=== PATIENT | male | born 1960 | race Caucasian/White ===

== ENCOUNTER 2020-05-04 16:35 | Emergency (ER) | payer OTHER, SELFPAY ==
[2020-05-04 16:47] VITALS: BP 145/84; PULSE 69; RESP 18; TEMP 36.3; O2SAT 99
--- NOTE | 2020-05-04 16:47 | ED.NECK ---
HPI - Neck Pain/Injury General Chief Complaint: Neck Pain/Injury Stated Complaint: neck pain Time Seen by Provider: 05/04/20 16:47 Source: patient Mode of arrival: ambulatory Limitations: no limitations History of Present Illness HPI Narrative: Eusebio Dan is a 59 yo male with a PMH of who comes to express care after falling off 8-10 ft ladder while putting in window. States he has neck pain, hit head. + LOC. Had numbness in bilateral arms. Has had a few beers to drink before coming here. Related Data Home Medications Medication Instructions Recorded Confirmed No Home Medications 05/04/20 05/04/20 Allergies Allergy/AdvReac Type Severity Reaction Status Date / Time No Known Allergies Allergy Unverified 02/04/18 10:18 Review of Systems Review of Systems: Narrative: CONSTITUTIONAL: Denies fever, chills, sweats. EYES: Denies visual changes, redness, discharge. ENT: Denies rhinorrhea, congestion, sore throat, otalgia. CARDIOVASCULAR: Denies chest pain, palpitations, edema. RESPIRATORY: Denies dyspnea, wheezing, cough GASTROINTESTINAL: Denies abdominal pain, nausea, vomiting, diarrhea. GENITOURINARY: Denies dysuria, hematuria, abnormal discharge SKIN: Denies rash or itching. NEUROLOGIC: Denies numbness, or focal weakness. PSYCHIATRIC: Denies anxiety or depression. Cervical pain with +LOC, after fall - laceration to scalp PMFSH Family History Family History Other Hypertension Social History Social History (Updated 05/04/20 @ 17:07 by Rosita Gallagher CNP) Smoking status: Current every day smoker Alcohol intake: current Drinks per week: 125 Alcohol use details: 18 beers a day Comments At time of signature, I agree with nursing past medical, surgical, social and family history. There is no relevant family history pertinent to the presenting complaint. Exam Narrative: Exam Narrative: GENERAL: This is a well-nourished, well-developed patient, in moderate distress. HEAD: normocephalic, fall- A and O x 3. EYES: PERRL. Sclera injected; vision is grossly intact. EARS: External ears normal,Canals clear - . Hearing grossly intact. NOSE: External nose normal without nasal discharge, nares without redness, no rhinorrhea. THROAT: Mucous membranes moist, NECK: Neck supple, non-tender CARDIOVASCULAR: Regular rate and rhythm without murmurs, gallops, or rubs. RESPIRATORY: Clear to auscultation. Breath sounds equal bilaterally. No wheezes, rales, or rhonchi. GASTROINTESTINAL: Abdomen soft, SKIN: warm, intact with no suspicious lesions or rash, good texture and turgor.Dirty - NEURO: awake, alert, and oriented to person, place and time. There were no obvious focal neurologic abnormalities, although has some L tingling. EXTREMITIES: Normal range of motion. BACK: Nontender without deformity Course Course Emergency Course: X-ray cervical:decided to send to ER for CT when report LOC and neck pain Vital Signs Vital signs: Vital Signs Temperature 97.4 F L 05/04/20 16:47 Pulse Rate 69 05/04/20 16:47 Respiratory Rate 18 05/04/20 16:47 Blood Pressure 145/84 H 05/04/20 16:47 Pulse Oximetry 99 05/04/20 16:47 Temperature 97.4 F L 05/04/20 16:47 Pulse Rate 69 05/04/20 16:47 Respiratory Rate 18 05/04/20 16:47 Blood Pressure 145/84 H 05/04/20 16:47 Pulse Oximetry 99 05/04/20 16:47 Procedures Laceration Laceration 1: Date: 05/04/20 Time: 17:09 Size (cm): 2 Description: flap Depth: simple, single layer Pre-repair: irrigated ====== Skin Level ====== Skin layer closed with: bharati Number of sutures: 3 ====== Subcutaneous Layer ====== ====== Muscle Layer ====== ====== Tendon Layer ====== Dressing: Tolerated well- pressure dressing MDM - Neck Pain/Injury Differential Diagnosis Differential diagnosis: Likely whiplash injury to neck,
== END 2020-05-04 17:15 | disposition short-term general hospital (02) ==
PROVIDERS: Emergency Provider Nurse Practitioner
DX: S06.9X9A Unspecified intracranial injury with loss of consciousness of unspecified duration, initial encounter (principal); S01.91XA Laceration without foreign body of unspecified part of head, initial encounter; S19.9XXA Unspecified injury of neck, initial encounter; W11.XXXA Fall on and from ladder, initial encounter; F17.200 Nicotine dependence, unspecified, uncomplicated
CPT/HCPCS: 12001; 99212; G0463; L0140

== ENCOUNTER 2020-05-04 17:38 | Emergency (ER) | payer OTHER, SELFPAY ==
--- NOTE | ~2020-05-04 | CT_ITS ---
EXAMINATION: CT lumbar spine wo con DATE: 05/04/2020 18:26 INDICATION: 8-10 foot fall from ladder with head injury and loss of consciousness. TECHNIQUE: Computed tomography (CT) of the lumbar spine was performed without intravenous contrast. A utomated exposure control and iterative reconstruction technique were employed. The dose-length produ ct was 892.93 mGy-cm. COMPARISON: None FINDINGS: Mild lumbar levocurvature. 4 mm anterolisthesis L5 on S1. Chronic appearing mild anterior wedging at T11 and T12. No acute fracture. Schmorl's node along the superior endplate of T11. Moderate disc heig ht loss at T11-T12 and T12-L1. Schmorl's nodes and Modic type III sclerotic degenerative endplate sofya nges along the anterior inferior endplate of T12. Severe disc height loss with additional sclerotic d egenerative endplate changes at L5-S1. Scattered diverticula along the sigmoid colon without adjacent inflammatory change to suggest diverticulitis. Postoperative changes suture line along the partially visualized ascending colon. The following disc levels are specifically discussed: T11-T12: Disc is mildly bulging. There is mild bilateral facet joint osteoarthritis. There is no neur al foraminal stenosis. There is mild central canal stenosis. T12-L1: Disc is mildly bulging. There is mild bilateral facet joint osteoarthritis. There is no neura l foraminal stenosis. There is minimal central canal stenosis. L1-L2: Disc is mildly bulging. There is mild left and moderate right facet joint osteoarthritis. Ther e is no neural foraminal stenosis. There is mild central canal stenosis. L2-L3: Disc is bulging. There is mild bilateral facet joint osteoarthritis. There is no neural forami nal stenosis. There is mild central canal stenosis. L3-L4: Disc is bulging. There is mild bilateral facet joint osteoarthritis. There is no neural forami nal stenosis. There is mild central canal stenosis. L4-L5: Disc is bulging. There is mild to moderate bilateral facet joint osteoarthritis. There is mild left neural foraminal stenosis. There is mild central canal stenosis. L5-S1: Disc is bulging. There is moderate left and mild to moderate right facet joint osteoarthritis. There is moderate bilateral neural foraminal stenosis. There is minimal central canal stenosis. IMPRESSION: 1. Spondylosis, severe at L5-S1, moderate at T12-L1 and mild in the intervening lumbar spine. No acut e osseous abnormality. Reviewed, dictated and finalized at location A. IMPRESSION: 1. Spondylosis, severe at L5-S1, moderate at T12-L1 and mild in the intervening lumbar spine. No acute osseous abnormality.
--- NOTE | ~2020-05-04 | XR_ITS ---
EXAMINATION: XR pelvis 1-2V DATE: 05/04/2020 18:36 INDICATION: 8-10 foot fall from ladder with head injury and loss of consciousness TECHNIQUE: An anteroposterior view of the pelvis was obtained. COMPARISON: None. FINDINGS: Bone alignment is normal. No fracture. Moderate facet osteoarthritis the lumbosacral junction. Bilate ral hip and sacroiliac joint spaces are normal. Suture line at the proximal colon in the right lower quadrant. Soft tissues are otherwise unremarkable. IMPRESSION: 1. No acute osseous abnormality. Reviewed, dictated and finalized at location A.
--- NOTE | ~2020-05-04 | XR_ITS ---
EXAMINATION: XR chest 1V portable DATE: 05/04/2020 18:51 INDICATION: Left arm numbness post fall from ladder TECHNIQUE: frontal view of the chest was obtained. COMPARISON: Chest radiograph dated 10/20/2012 FINDINGS: The lungs remain clear with no focal airspace opacities, pulmonary edema, pleural effusion or pneumot horax. The cardiomediastinal silhouette is normal. Suggestion of an old healed anterior right sixth a nd seventh rib fractures which appears unchanged since the prior radiograph. No acute fractures ident ified. IMPRESSION: 1. No acute osseous abnormality or acute cardiopulmonary disease. Reviewed, dictated and finalized at location A.
--- NOTE | ~2020-05-04 | CT_ITS ---
EXAMINATION: CT brain wo con DATE: 05/04/2020 18:26 INDICATION: 8-10 foot fall from ladder with head injury and loss of consciousness TECHNIQUE: Computed tomography (CT) of the head was performed without intravenous contrast. Sagittal and coronal reconstructions were performed. The mA was adjusted according to patient size. Iterative reconstruction technique was employed. The dose-length product was 605.33 mGy-cm. COMPARISON: None FINDINGS: Midline posterior parietal small scalp hematoma and laceration with skin bharati. No fracture. No acu te intracranial hemorrhage, acute infarction or abnormal extra axial fluid collection. Ventricles are normal and symmetric. No mass/mass effect. Mild mucosal thickening in the bilateral maxillary sinuse s. The orbits and mastoid air cells are normal. IMPRESSION: 1. No fracture or acute intracranial process. Reviewed, dictated and finalized at location A.
--- NOTE | ~2020-05-04 | CT_ITS ---
EXAMINATION: CT cervical spine wo con DATE: 05/04/2020 18:26 INDICATION: Fall with head injury and left arm numbness and heaviness. TECHNIQUE: Computed tomography (CT) of the cervical spine was performed without intravenous contrast. Automated exposure control and iterative reconstruction technique were employed. The dose-length pro duct was 200.59 mGy-cm. COMPARISON: None FINDINGS: Mild cervical dextrocurvature. Sagittal alignment is normal. Vertebral body heights are normal. No fr acture. Moderate disc height loss at C5-C6 and C6-C7 and mild disc height loss at the remaining level s between C2-C3 and T2-T3. Disc bulges and posterior disc osteophyte complex is through C6-C7 resulti ng in multilevel mild central canal stenosis. There is also multilevel bilateral uncovertebral osteoa rthritis resulting in moderate neural foraminal stenosis on the left at C3-C4 through C5-C6 with mild neural foraminal stenosis at the remaining cervical neural foramina. Moderate facet osteoarthritis o n the left at C3-C4 and severe facet osteoarthritis on the left at T2-T3. Mild facet osteoarthritis a t the remaining cervical and upper thoracic levels. Cervical soft tissues are unremarkable. Mild emph ysema at the apices of lungs. IMPRESSION: 1. Mild cervical dextrocurvature with moderate spondylosis. No fracture or other acute osseous abnorm ality. 2. Mild emphysema. Reviewed, dictated and finalized at location A. IMPRESSION: 1. Mild cervical dextrocurvature with moderate spondylosis. No fracture or othe r acute osseous abnormality. 2. Mild emphysema.
[2020-05-04 17:41] VITALS: BP 159/99; PULSE 75; RESP 18; TEMP 36.7; O2SAT 97
[2020-05-04] MEDS: SODIUM CHLORIDE 0.9% IV 1,000 ML 999 ML IV CONT (17:54)
--- NOTE | 2020-05-04 17:56 | ED.FALL ---
HPI - Fall General Chief Complaint: Fall <Jesse Forrester PA-C - Last Filed: 05/04/20 19:20> Stated Complaint: fall 8-10 ft <Jesse Forrester PA-C - Last Filed: 05/04/20 19:20> Time Seen by Provider: 05/04/20 17:43 <Jesse Forrester PA-C - Last Filed: 05/04/20 19:20> Source: patient <FERNANDO Mcgarry Last Filed: 05/04/20 19:20> Mode of arrival: ambulatory <Jesse Forrester PA-C - Last Filed: 05/04/20 19:20> Limitations: no limitations <Jesse Forrester PA-C - Last Filed: 05/04/20 19:20> History of Present Illness HPI Narrative: Patient is a 59-year-old male who presents to emergency department for evaluation of head injury that occurred just prior to arrival patient was 8 to 10 feet up on a ladder when he fell landing on his buttock has since had aching pain to the posterior head with the worst pain of the neck at the base of the neck at C6-7. Patient notes that he landed on his buttocks denies any pelvic or low back pain. Patient was sent by urgent care for evaluation. Patient is unsure as to loss of consciousness. On arrival patient resting comfortably in the room. Patient's posterior scalp was sutured at urgent care <Jesse Forrester PA-C - Last Filed: 05/04/20 19:20> Related Data Home Medications: Home Medications Medication Instructions Recorded Confirmed No Home Medications 05/04/20 05/04/20 <Jesse Forrester PA-C - Last Filed: 05/04/20 19:20> Allergies/Adverse Reactions: Allergies Allergy/AdvReac Type Severity Reaction Status Date / Time No Known Allergies Allergy Unverified 05/04/20 17:46 <Jesse Forrester PA-C - Last Filed: 05/04/20 19:20> Review of Systems Review of Systems: All systems reviewed & are unremarkable except as noted in HPI and below <Jesse Forrester PA-C - Last Filed: 05/04/20 19:20> PMFSH Social History Social History: Social History Smoking status: Current every day smoker Alcohol intake: current Drinks per week: 125 Gender identity (if verbalized by the patient): Male <Jesse Forrester PA-C - Last Filed: 05/04/20 19:20> Exam Narrative: Exam Narrative: GENERAL: Well-appearing, well-nourished, and in no acute distress. HEAD: Normocephalic, posterior scalp laceration sutured with bharati EYES: PERRLA and EOMI. ENT: Nares clear, no rhinorrhea or epistaxis. Mucous membranes moist. Oropharynx without tonsillar hypertrophy exudate or other lesions. NECK: Supple. No adenopathy or masses. CHEST: Clear to auscultation. No respiratory distress. No wheezes rales or rhonchi HEART: Regular rate and rhythm. No murmur heard. EXTREMITIES: Normal range of motion. No edema. Midline cervical tenderness no thoracic or lumbar tenderness. SKIN: Warm, dry, no rash. NEURO: No focal deficits. Alert and oriented x3. Cranial nerves II through XII grossly intact. Normal speech and gait PSYCH: Normal mood and affect. <Jesse Forrester PA-C - Last Filed: 05/04/20 19:20> Course Course Emergency Course: Patient in the room aware of case findings treatment plan and diagnosis <Jesse Forrester PA-C - Last Filed: 05/04/20 19:20> Vital Signs Vital signs: Vital Signs Temperature 98.1 F 05/04/20 17:41 Pulse Rate 75 05/04/20 17:41 Respiratory Rate 18 05/04/20 17:41 Blood Pressure 159/99 H 05/04/20 17:41 Pulse Oximetry 97 05/04/20 17:41 Temperature 98.1 F 05/04/20 18:50 Pulse Rate 68 05/04/20 19:25 Respiratory Rate 15 05/04/20 19:25 Blood Pressure 141/70 H 05/04/20 19:25 Pulse Oximetry 99 05/04/20 19:25 <Jesse Forrester PA-C - Last Filed: 05/04/20 19:20> Vital Signs Temperature 98.1 F 05/04/20 17:41 Pulse Rate 75 05/04/20 17:41 Respiratory Rate 18 05/04/20 17:41 Blood Pressure 159/99 H 05/04/20 17:41 Pulse Oximetry 97 05/04/20 17:41 Temperature 98.1 F 05/04/20 18:50
[2020-05-04 17:57] LABS: Basophils Percent Auto 0.3 % (0.2-1.2); Eosinophils Absolute Auto 0.2 K/mm3 (0-0.3); Eosinophils Percent Auto 1.7 % (0-4.4); Hematocrit 48.5 % (42.0-52.0); Hemoglobin 16.6 g/dL (14.0-18.0); Immature Granulocyte Absolute 0.03 K/mm3 (0.00-0.031); Immature Granulocyte Percent A 0.3 % (0-0.5); Lymphocytes Absolute Auto 3.19 K/mm3 (0.9-3.2); Lymphocytes Percent Auto 36.1 % (18.3-44.2); Mean Corpuscular HGB Conc 34.2 g/dl (32-36); Mean Corpuscular Hemoglobin 33.5 pg (26-34); Mean Corpuscular Volume 97.8 fl (80-100); Mean Platelet Volume 10.4 fl (7.4-10.4); Neutrophils Absolute Auto 4.5 K/mm3 (1.3-6.7); Neutrophils Percent Auto 50.6 % (45.5-73.1); Platelet Count Result 183 k/mm3 (150-375); Red Blood Count 4.96 M/mm3 (4.6-6.20); Red Cell Distribution Width 13.4 % (11.5-14.5); White Blood Count 8.8 K/mm3 (4.5-10.0)
[2020-05-04 18:07] LABS: Prothrombin Time 13.3 Seconds (11.1-14.7)
[2020-05-04 18:08] LABS: Partial Thromboplastin Time 30.4 SECONDS (22.3-36.8)
[2020-05-04 18:12] LABS: Alanine Aminotransferase 356 U/L (4-50); Albumin Level 4.8 g/dL (3.5-5.1); Alkaline Phosphatase 89 U/L (38-126); Aspartate Amino Transferase 442 U/L (17-59); Bilirubin,Total 0.6 mg/dL (0.2-1.3); Blood Urea Nitrogen 8 mg/dL (9-20); Calcium 9.8 mg/dL (8.4-10.2); Carbon Dioxide 26 mmol/L (22-30); Chloride 107 mmol/L (98-107); Estimated CRCL calculation 94 ml/min; Estimated Glomerular Filt Rate > 60; Glucose 112 mg/dL (75-110); Potassium 4.3 mmol/L (3.4-5.0); Sodium 141 mmol/L (137-145)
[2020-05-04 18:50] VITALS: BP 147/73; PULSE 62; RESP 18; TEMP 36.7; O2SAT 97
[2020-05-04 19:25] VITALS: BP 141/70; PULSE 68; RESP 15; O2SAT 99
== END 2020-05-04 19:25 | disposition home or self-care (01) ==
PROVIDERS: Emergency Medicine Emergency Medical Services; Emergency Provider General Practice
DX: S09.90XA Unspecified injury of head, initial encounter (principal); S16.1XXA Strain of muscle, fascia and tendon at neck level, initial encounter; F17.200 Nicotine dependence, unspecified, uncomplicated; M47.812 Spondylosis without myelopathy or radiculopathy, cervical region; J43.9 Emphysema, unspecified; M47.816 Spondylosis without myelopathy or radiculopathy, lumbar region; W11.XXXA Fall on and from ladder, initial encounter
CPT/HCPCS: 36415; 70450; 71045; 72125; 72131; 72170; 80053; 85025; 85610; 85730; 96365; 99284; J0131; J7030; L0140

== ENCOUNTER 2020-11-13 16:01 | Emergency (ER) | payer OTHER, SELFPAY ==
--- NOTE | ~2020-11-13 | XR_ITS ---
XR abdomen/kub 1V DATE: 11/13/2020 16:38 INDICATION: Bilateral flank pain. Hepatitis C-positive. TECHNIQUE: AP projection COMPARISON: None FINDINGS: Normal heart size. The included lower lung zones are clear. No pleural effusion is evident. The psoas shadows are intact. No visceromegaly is detected. No calcification, is noted overlying the urinary tracts. Radiopaque sutures, right lower quadrant. No evidence of bowel obstruction. There is some degenerative change of the thoracic and lumbar spine. No suspicious osteolytic or osteo blastic lesions. IMPRESSION: Postoperative change, right lower quadrant; otherwise unremarkable examination Reviewed, dictated and finalized at Location [facility]. Reviewed, dictated and finalized at location A. T CHECKER
[2020-11-13 16:05] VITALS: BP 152/77; PULSE 65; RESP 16; TEMP 37.1; O2SAT 99
--- NOTE | 2020-11-13 16:25 | ED.GENADULT ---
HPI - General Adult General Chief complaint: Urogenital-Male Stated complaint: kidney pain Time Seen by Provider: 11/13/20 16:23 Source: patient and RN notes reviewed Mode of arrival: ambulatory Limitations: no limitations History of Present Illness HPI narrative: 59-year-old male presents with complaints of diffused lower back pain with radiating intermittent right lower abdomen pain, and intermittent nausea for the past 4 days. Eusebio reports pain increasing to bilateral kidney area for the last 24 hours. Ibuprofen, Tylenol, Aspirin without relief. No groin pain. No genital discharge. No concern for a STD. No fever or chills. No vomiting. Tolerating po intake well. No exacerbating factors at this time. Denies dysuria, hematuria, and genital bleeding. No blood in stool or constipation. Last BM was 11/13/20 this morning, diarrhea. Denies chest pain, headache, and dizziness. Remains active. The patient reports he have not been diagnosed with COVID-19. The patient reports he is not waiting for the results of a COVID-19 lab test. The patient reports he do not have fever, weakness, or fatigue. The patient reports he do not have a new or worsening cough or shortness of breath. Denies chest pain. The patient reports he do not have any rhinorrhea, congestion, loss of taste, or sore throat. Denies recent traveling. Denies concerns for COVID-19 or exposures been home with limited outdoor exposure except for essential household needs and return home. At this time, patient is not suspected of having COVID-19. Some parts of this dictation were generated by voice recognition software and may contain typographical and/or grammatical inaccuracies. Related Data Allergies Allergy/AdvReac Type Severity Reaction Status Date / Time No Known Allergies Allergy Verified 11/13/20 16:12 Review of Systems Review of Systems: Narrative: CONSTITUTIONAL: Denies fever, chills, sweats. EYES: Denies visual changes, redness, discharge. ENT: Denies rhinorrhea, congestion, sore throat, otalgia. CARDIOVASCULAR: Denies chest pain, palpitations, edema. RESPIRATORY: Denies dyspnea, wheezing, cough. GASTROINTESTINAL: Complains of intermittent right lower abdominal pain, diarrhea, and nausea. Denies vomiting. GENITOURINARY: Denies dysuria, abnormal discharge. SKIN: Denies rash or itching. MUSCULOSKELETAL: Complains of acute back pain. Denies joint pain or myalgia. NEUROLOGIC: Denies numbness or focal weakness. PSYCHIATRIC: Denies anxiety or depression. All other systems reviewed are negative, except as documented in HPI and below. [facility] Past Medical History Medical History (Updated 11/14/20 @ 00:00 by Linda Damoose) Alcohol dependence Collapsed lung COPD (chronic obstructive pulmonary disease) Depression Hepatitis C Hx of migraines Lower extremity surgery planned Romario in left leg Tobacco abuse Surgical History Surgical History (Updated 11/13/20 @ 16:47 by ANEL Mcgovern) History of colon resection History of splenectomy Hx of appendectomy Family History Family History (Updated 11/17/20 @ 00:22 by ANEL Mcgovern) Father , related to ALS Amyotrophic lateral sclerosis (ALS) Mother , lung cancer Lung cancer Other Hypertension Social History Social History (Updated 11/17/20 @ 00:24 by ANEL Mcgovern) Smoking packs per day: 1 Smoking cigarettes per day: 20.0 Years smoked: 40 Smoking pack-years: 40.00 Smoking status: Current every day smoker Tobacco type: cigarettes Second hand tobacco smoke exposure: Yes Alcohol intake: current Drinks per week: 125 Alcohol use details: beer daily Substance use: current Substance use type: crack/cocaine Other substance usage details: Eusebio reports he last did cocaine in 11/12/20 Living arrangements: with family Occupation/Education: unemployed Gender identity (if verbalized by the patient): Male Sexu
[2020-11-13] MEDS: KETOROLAC (*BKC) 60 MG/2 ML VIAL IM (16:52)
== END 2020-11-13 17:06 | disposition home or self-care (01) ==
PROVIDERS: Emergency Provider Nurse Practitioner Family
DX: R10.9 Unspecified abdominal pain (principal); F17.200 Nicotine dependence, unspecified, uncomplicated; J44.9 Chronic obstructive pulmonary disease, unspecified; Z86.19 Personal history of other infectious and parasitic diseases
CPT/HCPCS: 74018; 81003; 96372; 99213; G0463; J1885

== ENCOUNTER 2023-01-09 13:05 | Emergency (ER) | payer OTHER, SELFPAY ==
--- NOTE | ~2023-01-09 | XR_ITS ---
EXAMINATION: XR wrist LT min 3V DATE: 01/09/2023 14:02 INDICATION: Left wrist pain post fall one month prior TECHNIQUE: Posteroanterior, ulnar deviation, oblique, and lateral views of the left wrist were obtain ed. COMPARISON: none FINDINGS: There is sclerosis along a subtle linear lucent fracture line at the metaphyseal region of the distal left radius. There appears to be extension to the articular surface near the fracture remains nondis placed with no evident fracture gap or incongruity at the articular surface. Subtle cortical step-off consistent with essentially nondisplaced avulsion fracture the tip of the ulnar styloid process. No other fractures identified. 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 Mild osteoarthritis at the lunocapitate articulation of the midcarpal joint and at the first carpometacarpal joint. Moderate ost eoarthritis at the third metacarpophalangeal joint. IMPRESSION: 1. Healing nondisplaced fracture of the distal left radius potentially with intra-articular extension . 2. Nondisplaced ulnar styloid avulsion fracture. 3. 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 Reviewed, dictated and finalized at location A. 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 Healing nondisplaced fracture of the distal left radius potentially with int ra-articular extension. 2. Nondisplaced ulnar styloid avulsion fracture. 3. 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
[2023-01-09 13:15] VITALS: BP 133/81; PULSE 61; RESP 12; TEMP 36.8; O2SAT 98
--- NOTE | 2023-01-09 13:47 | ED.UPPEXIN ---
HPI - Extremity Injury (Upper) General Chief Complaint: Extremity Injury, Upper Stated Complaint: Left Wrist Pain Time Seen by Provider: 01/09/23 13:47 Source: patient, RN notes reviewed and old records reviewed Mode of arrival: ambulatory Limitations: no limitations History of Present Illness HPI narrative: 62-year-old male presents to the [facility] with left wrist pain. Reports an injury 1 month ago. Patient states approximately 1 month ago he fell off a ladder. Does not remember much of the incident. Is not having any back pain or leg pain. States that he has just been having pain in the dorsal aspect left wrist. No snuffbox tenderness. 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 Sensation intact in all 5 fingers with capillary refill under 2 seconds Patient has not seek medical treatment for injury in the past Related Data Home Medications Medication Instructions Recorded Confirmed citalopram 20 mg tablet (Celexa) mg 01/09/23 cyclobenzaprine 10 mg tablet mg 01/09/23 ergocalciferol (vitamin D2) 1,250 01/09/23 mcg (50,000 unit) capsule omeprazole 40 mg capsule,delayed mg 01/09/23 release trazodone 100 mg tablet mg 01/09/23 Allergies Allergy/AdvReac Type Severity Reaction Status Date / Time No Known Allergies Allergy Verified 01/09/23 13:39 Review of Systems Review of Systems: All systems reviewed & are unremarkable except as noted in HPI and below Constitutional: Constitutional: Reports no additional constitutional complaints Eyes: Eyes: Reports no additional eye complaints ENT: Reports system reviewed and no additional complaints, except as documented Cardiovascular: Cardiovascular: Reports no additional cardiovascular complaints, Denies chest pain and Denies dyspnea Respiratory: Respiratory: Reports no additional respiratory complaints, Denies chest congestion, Denies cough and Denies dyspnea Gastrointestinal: Gastrointestinal: Reports no additional gastrointestinal complaints, Denies abdominal pain, Denies nausea and Denies vomiting Musculoskeletal: Musculoskeletal: Reports as per HPI and Reports arthralgias (Left wrist) Integumentary/Breasts: Skin/Breast: Reports system reviewed and no additional complaints, except as docu Neurologic: Reports system reviewed and no additional complaints, except as documented Psychiatric: Psychiatric: Reports no additional psychiatric complaints Allergic/Immunologic: Allergic/Immunologic: Reports no additional allergic/immunologic complaints PMFSH Past Medical History Medical History Alcohol dependence Collapsed lung COPD (chronic obstructive pulmonary disease) Depression Hepatitis C Hx of migraines Lower extremity surgery planned Romario in left leg Tobacco abuse Surgical History Surgical History History of colon resection History of splenectomy Hx of appendectomy Family History Family History Father , related to ALS Amyotrophic lateral sclerosis (ALS) Mother , lung cancer Lung cancer Other Hypertension Social History Social History Smoking packs per day: 1 Smoking cigarettes per day: 20.0 Years smoked: 40 Smoking pack-years: 40.00 Smoking status: Current every day smoker Tobacco type: cigarettes Second hand tobacco smoke exposure: Yes Alcohol intake: current Drinks per week: 125 Alcohol use details: beer daily Substance use: current Substance use type: crack/cocaine Other substance usage details: Eusebio reports he last did cocaine in 11/12/20 Living arrangements: with family Occupation/Education: unemployed Gender identity (if verbalized by the patient): Male Sexual Orientation (if Verbalized by the Patient): Straight or Heterosexual Comments At the time of my si
== END 2023-01-09 14:57 | disposition home or self-care (01) ==
PROVIDERS: Emergency Provider Nurse Practitioner; PCP Internal Medicine
DX: S52.615A Nondisplaced fracture of left ulna styloid process, initial encounter for closed fracture (principal); S52.515A Nondisplaced fracture of left radial styloid process, initial encounter for closed fracture; W11.XXXA Fall on and from ladder, initial encounter; J44.9 Chronic obstructive pulmonary disease, unspecified; Z86.19 Personal history of other infectious and parasitic diseases; F17.210 Nicotine dependence, cigarettes, uncomplicated
CPT/HCPCS: 29125; 73110; 99214; A4565; G0463

== ENCOUNTER 2023-11-28 14:41 | Emergency (ER) | payer OTHER, SELFPAY ==
[2023-11-28 14:55] VITALS: BP 127/78; PULSE 57; RESP 16; TEMP 36.7; O2SAT 97
--- NOTE | 2023-11-28 15:03 | ED.UPPEXIN ---
HPI - Extremity Injury (Upper) General Chief Complaint: Extremity Injury, Upper Stated Complaint: left wrist issue Time Seen by Provider: 11/28/23 15:07 Source: patient Mode of arrival: ambulatory Limitations: no limitations History of Present Illness HPI narrative: 62-year-old male presented for complaint of left wrist pain worsening over the past few months. He states he had a fracture to the left wrist 12/2022, but did not follow-up. He denies new injury. Denies numbness, tingling, weakness, swelling or bruising to the site. Takes occasional Tylenol or ibuprofen. He states he is established with Dr. Chamberlain, but does not want to follow-up for his carpal tunnel. Related Data Home Medications Medication Instructions Recorded Confirmed citalopram 20 mg tablet (Celexa) mg 01/09/23 cyclobenzaprine 10 mg tablet mg 01/09/23 ergocalciferol (vitamin D2) 1,250 01/09/23 mcg (50,000 unit) capsule omeprazole 40 mg capsule,delayed mg 01/09/23 release trazodone 100 mg tablet mg 01/09/23 meloxicam 15 mg tablet 15 mg PO DAILY 11/28/23 11/28/23 Allergies Allergy/AdvReac Type Severity Reaction Status Date / Time No Known Allergies Allergy Verified 01/09/23 13:39 Review of Systems Review of Systems: CONSTITUTIONAL: Denies body aches, fever, chills CARDIOVASCULAR: Denies chest pain, palpitations, or edema. SKIN: Denies rash, itching, or wounds. MUSCULOSKELETAL: reports left wrist pain Denies back pain, or myalgia. NEUROLOGIC: Denies headache, numbness, tingling, or weakness. All systems reviewed & are unremarkable except as noted in HPI and below PMFSH Past Medical History Medical History Alcohol dependence Collapsed lung COPD (chronic obstructive pulmonary disease) Depression Hepatitis C Hx of migraines Lower extremity surgery planned Romario in left leg Tobacco abuse Surgical History Surgical History History of colon resection History of splenectomy Hx of appendectomy Family History Family History Father , related to ALS Amyotrophic lateral sclerosis (ALS) Mother , lung cancer Lung cancer Other Hypertension Social History Social History Smoking packs per day: 1 Smoking cigarettes per day: 20.0 Years smoked: 40 Smoking pack-years: 40.00 Smoking status: Current every day smoker Tobacco type: cigarettes Second hand tobacco smoke exposure: Yes Alcohol intake: current Drinks per week: 125 Alcohol use details: beer daily Substance use: current Substance use type: crack/cocaine Other substance usage details: Eusebio reports he last did cocaine in 11/12/20 Living arrangements: with family Occupation/Education: unemployed Gender identity (if verbalized by the patient): Male Sexual Orientation (if Verbalized by the Patient): Straight or Heterosexual Comments At time of signature, I have reviewed and agree with nursing past medical, surgical, social and family history unless otherwise noted. Please see nursing chart for further information. There is no relevant family history pertinent to the presenting complaint Exam Narrative: GENERAL: Well-appearing CHEST: Speaks in full sentences. No respiratory distress. HEART: Regular rate and rhythm. Normal and equal peripheral pulses. EXTREMITIES: Left hand has normal strength and sensation, normal range of motion at wrist. Minimal swelling and tenderness to dorsal wrist distal radius. No ecchymosis, No open wounds, or obvious deformity; alignment normal, pulse palpable and equal bilaterally, skin warm, dry, pink. Capillary refill less than 3 seconds. SKIN: Warm, dry, no rash. NEURO: Alert and oriented x3. PSYCH: Normal mood and affect Course Course Emergency Cours
== END 2023-11-28 15:27 | disposition home or self-care (01) ==
PROVIDERS: Emergency Provider Nurse Practitioner Family; PCP Internal Medicine
DX: M25.532 Pain in left wrist (principal); F17.210 Nicotine dependence, cigarettes, uncomplicated; J44.9 Chronic obstructive pulmonary disease, unspecified; Z86.19 Personal history of other infectious and parasitic diseases
CPT/HCPCS: 99213; G0463